=== PATIENT | female | born 1990 | race Caucasian/White ===

== ENCOUNTER 2019-02-09 19:42 | Emergency (ER) | payer MEDICARE, SELFPAY ==
[2019-02-09 19:44] VITALS: BP 132/77; PULSE 76; RESP 16; TEMP 36.8; O2SAT 98; BMI 45.2
--- NOTE | 2019-02-09 20:18 | ED.RN ---
CALLED FOR EKG PER RN REQUEST, NO OLD EKGS IN MUSE
[2019-02-09 20:20] VITALS: BP 133/76; BP 136/79; BP 136/85; PULSE 54; PULSE 61
--- NOTE | 2019-02-09 20:20 | RAD_ITS ---
STUDY: X-RAY CHEST REASON FOR EXAM: Female, 28 years old. Dizziness while walking around her TECHNIQUE: AP COMPARISON: None. FINDINGS: EKG leads project over the chest. The lungs are clear and expanded. There is no demonstrated pleural abnormality. Normal size heart. Normal mediastinum and compa. Normal visualized pulmonary arteries. Normal visualized aortic arch and descending thoracic aorta. Normal visualized thoracic spine. Normal visualized ribs, clavicles, and shoulders. There is no demonstrated abnormality of the visualized soft tissue structures of the upper abdomen. RAD/Chest 1 View (Portable) IMPRESSION: Nonacute portable x-ray examination of the chest. Electronically Signed: Terry Garcia MD ([place]) at 20:38 EDT , Service support ,
--- NOTE | 2019-02-09 20:20 | EKG12_ITS ---
Test Reason : DIZZY Blood Pressure : / mmHG Vent. Rate : 049 BPM Atrial Rate : 049 BPM P-R Int : 144 ms QRS Dur : 088 ms QT Int : 444 ms P-R-T Axes : 038 044 018 degrees QTc Int : 401 ms Sinus bradycardia with sinus arrhythmia Otherwise normal ECG Confirmed by DANIAL BOB, LISE ([id number]), web content editor JOSE ROSARIO ([id number]) on 02/11/2019 9:30:49 AM Referred By: DC Confirmed By:LISE BARROW MD
[2019-02-09] MEDS: 0.9% Normal Saline 1,000 ML 1000 ML IV (20:39)
[2019-02-09 20:48] LABS: Absolute Lymphocyte Count 2.03 X10^3/uL (0.83-4.51); Absolute Neutrophil Count 5.4 X10^3/uL (2.0-7.7); Basophil# 0.04 X10^3/uL; Basophil% 0.5 % (0-1); Eosinophil# 0.13 X10^3/uL; Eosinophils% 1.6 % (0-5); Hematocrit 39.8 % (37-47); Lymphocyte # 2.03 X10^3/ul (4.0); Lymphocyte % 24.8 % (19-41); Mean Corp Hgb Conc 32.7 g/dL (32-36); Mean Corpuscular Volume 91.7 fL (81-99); Mean Platelet Vol. 9.7 fl (6.2-12.0); Monocyte# 0.52 X10^3/uL; Monocyte% 6.4 % (0-10); NRBC Flagged by Analyzer 0 % (0-5); Neutrophil # 5.43 X10^3/uL (2.7-7.7); Neutrophil % 66.5 % (47-70); Platelet Count 312 K/mm3 (150-450); RBC Distribution Width CV 12.8 % (11.6-14.6); RBC Distribution Width SD 42.9 fl (35.1-43.9); Red Blood Count 4.34 M/mm3 (4.2-5.4); White Blood Count 8.2 K/mm3 (4.4-11.0)
[2019-02-09 21:07] LABS: Anion Gap 4 (5-15); BUN 9 mg/dL (7-18); BUN/Creat Ratio 10.8 RATIO (10-20); Calcium,Total 8.9 mg/dL (8.5-10.1); Chloride 105 mmol/L (98-107); Creatinine, Serum 0.83 mg/dL (0.55-1.02); EST Glomerular Filtration Rate 86 mL/min (>60); Est Glom Filt Rate - Afr Amer 104 mL/min (>60); Estimated Creatinine Clearance 89.99 ml/min; Glucose 134 mg/dL (74-106); Potassium 4.2 mmol/L (3.5-5.1); Sodium Level 140 mmol/L (136-145)
[2019-02-09 21:15] VITALS: BP 145/93; PULSE 67; RESP 18; O2SAT 100
--- NOTE | 2019-02-09 22:30 | ED.DCSUM_ITS ---
- ER Visit Summary Date of Service: 02/09/19 Chief Complaint: Dizziness History of Present Illness: The patient is a 28 F with dizziness that [place] She was walking and felt like she might pass out. She felt weak all over. She tried to eat something. She had some [place] fries, but they did not seem to help. Her symptoms seem to be getting worse and so she came to the ED. She denies any history of this in the past. Denies any pain or other related symptoms. No recent surgeries, hospitalizations, or illnesses. She takes a multivitamin. She has a history of multiple surgeries including a gastric sleeve, but nothing recently. Denies drug use. Physical Examination: Afebrile and vital signs unremarkable. Alert and oriented. No acute distress. Head and neck unremarkable. Heart regular. Lungs clear. Abdomen soft. Skin appears normal. Good strength and sensation grossly. Test Results: EKG showed sinus rhythm at a rate of 49. CBC, BMP, troponin unremarkable. Chest x-ray showed no acute process. Emergency Department Course and Treatment: Patient was treated with IV fluids. Orthostatics were negative. Patient had some intermittent bradycardia, as low as 49. Typically, her heart rate was in the 70s. Blood pressure remained normal. On reevaluation, she was feeling weak, but had no further dizziness or other symptoms. She said that she had bradycardia after her gastric sleeve surgery years ago. This had resolved spontaneously. I was concerned that this might be contributing to her symptoms, but her bradycardia was so transient. It would only last a few seconds and then her heart rate would come right back into the 70s. It did not seem to affect her symptoms one way or the other. She only takes a multivitamin, and is not on medications which would affect her heart rate. There is no sign of heart block or other abnormal rhythm. I believe she is appropriate for outpatient evaluation. Will refer her to her primary doctor as well as Dr. Hanks who is on-call for cardiology. Patient feels comfortable going home to rest. Follow-up tomorrow. Return for any new or worsening issues. Treatment Plan: As above Disposition: Discharge Impression: 1. Near syncope This note was generated with [employer]ation software. It may contain incorrect words, spelling, and punctuation that were not noted in review of the chart prior to signing ED Disposition - Plan for ED Patient: Referrals: Care Physician,No Primary [Primary Care Provider] -
--- NOTE | 2019-02-09 22:35 | ED.DEP ---
ED Disposition - Plan for ED Patient: Instructions: DIZZINESS, Unk Cause Referrals: Willard Hanks MD [STAFF PHYSICIAN] -
[2019-02-09 22:38] VITALS: BP 133/90; PULSE 60; RESP 15; O2SAT 99
== END 2019-02-09 22:38 | disposition home or self-care (01) ==
LOC: ED 21:02
PROVIDERS: Emergency Provider Emergency Medicine
DX: R55 Syncope and collapse (principal)
CPT/HCPCS: 71045; 80048; 84484; 85025; 93005; 96360; 99285; J7030